=== PATIENT | female | born 1965 | race Caucasian/White ===

== ENCOUNTER 2016-12-01 09:36 | Observation (INO) ==
[2016-12-01] MEDS ORDERED: Ondansetron 4 MG/2 ML VIAL IVP ONE (10:22)
[2016-12-01] MEDS ORDERED: *HR* Morphine 2 MG/ML SYRINGE IVP ONE (10:22)
[2016-12-01 10:38] LABS: Basophils # 0.1 K/mcL (0.0-0.2); Eosinophils # 0.3 K/mcL (0.0-0.6); Eosinophils % 4.2 %; Hematocrit 34.4 % (35.3-44.9); Hemoglobin 10.7 g/dL (11.5-15.4); Immature Granulocytes % 0.3 % (0-4); Lymphocytes # 0.9 K/mcL (0.6-4.6); Lymphocytes % 14.8 %; Mean Corpuscular HGB Conc 31.1 g/dL (31.6-35.5); Mean Corpuscular Hemoglobin 23.8 pg (28.0-33.3); Mean Corpuscular Volume 76.4 fL (83.0-100.0); Mean Platelet Volume 11.1 fL (9.4-12.4); Monocytes # 0.5 K/mcL (0.0-1.3); Neutrophils # 4.4 K/mcL (1.6-8.9); Platelet Count 308 K/mcL (140-400); Red Cell Distribution Width 14.3 % (11.5-14.5); Segmented Neutrophils % 71.7 %
[2016-12-01 10:52] LABS: Alanine Aminotransferase 22 Units/L (0-55); Albumin 3.8 g/dL (3.5-5.0); Albumin/Globulin Ratio 1.1 (1.1-2.2); Alkaline Phosphatase 142 Units/L (38-126); Amylase 46 Units/L (25-125); Aspartate Amino Transferase 10 Units/L (5-34); BUN/Creatinine Ratio 19 (6-26); Bilirubin,Direct 0.2 mg/dL (0.0-0.5); Bilirubin,Indirect 0.2 mg/dL (0.0-1.2); Bilirubin,Total 0.4 mg/dL (0.2-1.2); Blood Urea Nitrogen 16 mg/dL (7-20); Calcium 9.4 mg/dL (8.6-10.8); Carbon Dioxide 23 mEq/L (19-29); Chloride 107 mEq/L (98-109); Globulin 3.6 g/dL (2.4-3.5); Glucose 111 mg/dL (70-99); Lipase 30 Units/L (8-78); Osmolality,Calculated 288 (280-300); Potassium 3.5 mEq/L (3.5-4.5); Sodium 138 mEq/L (136-145); Total Protein 7.4 g/dL (6.0-8.3); eGFR For African Americans > 60 (> 60); eGFR For Non-African Americans > 60 (> 60)
--- NOTE | 2016-12-01 10:58 | Emergency Department Note ---
Disposition Clinical Impression: Abdominal pain Qualifiers: Abdominal location: right upper quadrant Qualified Code(s): R10.11 - Right upper quadrant pain Disposition: Admitted As Inpatient Condition: Good Referrals: Glenna Craven CNP [Primary Care Provider] - Forms: Work/School Release, ED Satisfaction Letter Time of Disposition: 16:14 Abdominal Pain HPI - General Chief Complaint: ED Abdominal Pain Stated Complaint: RLQ Pain Time Seen by Provider: 12/01/16 09:57 Source: patient Mode of arrival: ambulatory Limitations: no limitations Nursing Notes Reviewed: Yes Vital Signs Reviewed: Yes - History of Present Illness HPI Narrative: 51-year-old female with no significant past medical history presents with progressive worsening right upper quadrant abdominal pain after laparoscopic cholecystectomy performed on November [address] Dean. The patient states that she continued to have right upper quadrant abdominal pain that is constant and sharp at times since her surgery. It now radiates into her left side of her abdomen as well as her back. She has been having some intermittent chills and nausea but no vomiting. She had her 2 week follow-up on 11/28/16. She was referred to GI and has an appointment on January 01. They are also waiting insurance approval for a CT scan. She has been taking 800 mg of ibuprofen every 4-6 hours. This has not been helping the pain. She denies any dysuria constipation or diarrhea. She has been taking a stool softener and she has no change in bowel movements. She denies any documented fevers, chest pain, shortness of breath, lightheadedness. She presents to the ED for evaluation of her worsening abdominal pain and cannot wait until her GI appointment in December. At time of evaluation, the patient rates the pain 10/10 and she is uncomfortable. Pain Scale: 10 - Related Data Home Medications Medication Instructions Recorded Confirmed Cholecalciferol (D-3) [Vitamin D] 2,000 unit PO DAILY 10/04/16 11/14/16 Docusate [Colace] 100 mg PO DAILY PRN 11/14/16 11/14/16 Ibuprofen [Motrin] 200 mg PO Q6HR PRN 11/14/16 11/14/16 LORazepam [Ativan] 0.5 mg PO DAILY PRN 11/14/16 11/14/16 Ondansetron HCl [Zofran] 4 mg PO Q8H PRN 11/14/16 11/14/16 Previous Rx's Medication Instructions Recorded Docusate [Colace] 100 mg PO BID #30 capsule 11/14/16 Oxycodone HCl/Acetaminophen 1 each PO Q4HR PRN #30 tablet 11/14/16 [Percocet 5-325 mg Tablet] Allergies Allergy/AdvReac Type Severity Reaction Status Date / Time No Known Allergies Allergy Verified 11/14/16 09:50 All systems ED: reviewed and negative except as stated. Constitutional: Reports: chills. Denies: fever Cardiovascular: Denies: chest pain, palpitations Respiratory: Denies: cough, dyspnea Gastrointestinal: Reports: abdominal pain, nausea. Denies: vomiting, diarrhea, constipation, hematemesis, hematochezia Genitourinary: Denies: urgency, dysuria, frequency Musculoskeletal: Reports: back pain (radiating from her abdominal pain) Neurological: Denies: headache, weakness Abdominal Pain PMH - Past Medical History Medical history: Reports: cancer Female Surgical History: Reports: breast surgery, , cholecystectomy Psychiatric history: Reports: anxiety - Social History Smoking status: Never smoker Alcohol use: Reports: none Drug use: Reports: none Physical Exam - General Limitations: no limitations General appearance: alert - Head Head exam: atraumatic, normocephalic, normal inspection - Eye Eye exam: Present: normal appearance. Absent: scleral icterus - ENT ENT exam: normal exam - Neck Neck exam: Present: normal inspection, full ROM, trachea midline - Chest Chest inspection: Present: normal inspection, symmetric chest wall rise - Respiratory Respiratory exam: Present: normal lung sounds bilaterally - Cardiovascular Cardiovascular exam: Present: regular rate, normal rhythm, normal heart sounds - Abdominal Exam Abdominal exam: Present: tenderness, normal bowel sounds, Watts's sign Abdominal tenderness: Present: RUQ, epigastrium - Neurological Exam Neurological exam: Present: alert, oriented X3 - Psychiatric Psychiatric exam: Present: normal affect, normal mood - Skin Skin exam: Present: warm, dry, intact, normal color Course Course Narrative: Patient with a lot of abdominal discomfort. We will obtain CT scan with IV contrast. Morphine and Zofran. We will reevaluate. - Reevaluation(s) Reevaluation #1: Patient reevaluated and still having pain. We will get 1 mg of Dilaudid. Time: 11:22 - Consultations Consultation #1: Discussed HIDA scan with Dr. Barnes. Tried to reassure patient that there is still concern. I did discuss with Dr Elliott and he has concern for maybe sphincter spasm. LFTs unremarkable. Dr. Barnes agreeable to admission for pain control and possible MRCP in the morning. Patient agreeable. Pain meds and fluids ordered. Awaiting bed placement. Time: 16:07 Vital Signs Temperature 98.6 F 12/01/16 09:42 Pulse Rate 120 12/01/16 09:42 Respiratory Rate 18 12/01/16 09:42 Blood Pressure 166/91 12/01/16 09:42 O2 Sat by Pulse Oximetry 95 12/01/16 09:42 Temperature 98.6 F 12/01/16 09:42 Pulse Rate 98 12/01/16 14:57 Respiratory Rate 18 12/01/16 14:57 Blood Pressure 149/89 12/01/16 14:57 O2 Sat by Pulse Oximetry 95 12/01/16 14:57 Oxygen Delivery Oxygen Delivery Room Air Abdominal Pain - Lab Data Result diagrams: 12/01/16 10:32 12/01/16 10:32 Lab Results 12/01/16 12/01/16 Range/Units 10:32 10:32 WBC 6.2 (4.3-11.1) K/mcL RBC 4.50 (3.82-4.97) M/mcL Hgb 10.7 L (11.5-15.4) g/dL Hct 34.4 L (35.3-44.9) % MCV 76.4 L (83.0-100.0) fL MCH 23.8 L (28.0-33.3) pg MCHC 31.1 L (31.6-35.5) g/dL RDW 14.3 (11.5-14.5) % Plt Count 308 (140-400) K/mcL MPV 11.1 (9.4-12.4) fL Immature Gran % 0.3 (0-4) % Seg Neutrophils % 71.7 % Lymphocytes % 14.8 % Monocytes % 8.0 % Eosinophils % 4.2 % Basophils % 1.0 % Neutrophils # 4.4 (1.6-8.9) K/mcL Lymphocytes # 0.9 (0.6-4.6) K/mcL Monocytes # 0.5 (0.0-1.3) K/mcL Eosinophils # 0.3 (0.0-0.6) K/mcL Basophils # 0.1 (0.0-0.2) K/mcL Sodium 138 (136-145) mEq/L Potassium 3.5 (3.5-4.5) mEq/L Chloride 107 (98-109) mEq/L Carbon Dioxide 23 (19-29) mEq/L BUN 16 (7-20) mg/dL Creatinine 0.85 (0.57-1.11) mg/dL Est GFR ( Amer) > 60 (> 60) Est GFR (Non-Af Amer) > 60 (> 60) BUN/Creatinine Ratio 19 (6-26) Glucose 111 H (70-99) mg/dL Calculated Osmolality 288 (280-300) Calcium 9.4 (8.6-10.8) mg/dL Total Bilirubin 0.4 (0.2-1.2) mg/dL Direct Bilirubin 0.2 (0.0-0.5) mg/dL Indirect Bilirubin 0.2 (0.0-1.2) mg/dL AST 10 (5-34) Units/L ALT 22 (0-55) Units/L Alkaline Phosphatase 142 H (38-126) Units/L Serum Total Protein 7.4 (6.0-8.3) g/dL Albumin 3.8 (3.5-5.0) g/dL Globulin 3.6 H (2.4-3.5) g/dL Albumin/Globulin Ratio 1.1 (1.1-2.2) Amylase 46 (25-125) Units/L Lipase 30 (8-78) Units/L Critical Care Time Critical Care Time: No
[2016-12-01] MEDS ORDERED: *HR* HYDROmorphone (PF) 1 MG/ML SYRINGE IVP ONE ×3 (11:20→15:52)
[2016-12-01] MEDS ORDERED: 0.9 % Sodium Chloride 1,000 ML IVC ONE (15:52)
[2016-12-01] MEDS ORDERED: Naloxone 0.4 MG/ML INJ IVP PRN (17:33)
--- NOTE | 2016-12-01 17:38 | General Surg History&Physical ---
<Siomara Gant - Last Filed: 12/01/16 17:58> Date of Encounter: 12/01/16 Time of Encounter: 17:38 Assessment and Plan (1) Post-operative pain Current Visit: Yes Status: Acute S/P laparoscopic cholecystectomy on 11/14/[address] Dean Action has been experiencing abdominal pain in the right upper quadrant that radiates to the back into the left upper quadrant for the last 2 weeks, is currently rated 10\10. She currently has a normal WBC, liver function tests except for a mildly elevated alk phos CT of the abdomen reveals a 1.5 cm collection in the gallbladder fossa that is consistent with small postoperative hematoma Hepatobiliary tests reveals that there does not appear to be flow into the common bile duct or small bowel, may represent spasm, hepatic dysfunction or duct obstruction. No evidence of jaundice or elevated AST\ALT. GI has been consulted by the emergency department. Plan for GI consult, patient may require MRCP or ERCP. Plan: -Keep NPO -Pain control with 1 mg IV Dilaudid Q1hr -Nausea control with Zofran -IV protonix -IVF at 100 mL per hour -IS as patient has been unable to take deep breaths secondary to pain. -GI to see him plan for MRCP or ERCP -AM labs The assessment and plan as outlined above was discussed with the patient and/or family members who expressed understanding and agreement. All questions were answered. (2) Abnormal CT of the abdomen Current Visit: Yes Status: Acute The assessment and plan as outlined above was discussed with the patient and/or family members who expressed understanding and agreement. All questions were answered. History of Present Illness Chief complaint: abdominal pain HPI: Ms. Mckeon is a 51 year old female with a history of breast cancer on the left S\P chemo/radiation partial mastectomy, who is s/p robotic cholecystectomy performed 11/14/2016 Dr. Dean who presented to the ER today complaining of progressively worsening right upper quadrant abdominal pain. The patient states that after discharge from the hospital she is continuing to have right upper quadrant pain that she describes as being constant and at times sharp. It will occasionally radiate to her left side and her back on the right side. She states that she used all of her medication that she was provided with her pain at discharge and then was told to take 800 mg of ibuprofen every 4-6 hours for pain. She states that this has not been helping her pain at all. She has been having some intermittent chills and nausea, denies any vomiting. She has also been unable to eat much of anything for the last 2 weeks. She does have normal bowel function and is passing gas. She states that she had her 2 week follow-up on . She states that she was referred to GI at this time and is awaiting further imaging test to be performed. The pain has become worse, and she felt she could not wait any longer to be evaluated by GI and thus presented to the ER today. Patient has a history of breast surgery, 2 sections, and cholecystectomy. She has been experiencing nausea with chills, pain and inability to take deep breaths, plantar numbness, weakness, feeling unbalanced, decreased appetite. She denies vomiting or fevers. Past Med Surg Social Fam HX - Past Medical History Medical history: cancer (Left breast s/p chemotherapy and radiation 2008) Psychiatric history: anxiety - Past Surgical History Surgical History: breast surgery, , cholecystectomy, other - Social History Smoking Status: Never smoker Smokeless Tobacco Status: No Alcohol use: none Drug use: none Medications and Allergies Cholecalciferol (D-3) [Vitamin D] 2,000 unit PO DAILY 10/04/16 [History] Ibuprofen [Motrin] 200 mg PO Q6HR PRN 11/14/16 [History] Docusate [Colace] 100 mg PO BID PRN 12/01/16 [History] Allergies No Known Allergies Allergy (Verified 11/14/16 09:50) Review of Systems All systems PM: A 10-system review of systems was performed and is negative for pertinent findings except as documented above in the HPI. - Constitutional anorexia, chills, fatigue, headache(s), weakness, no fever(s) - EENT Nose, mouth and throat: dizziness, headache(s), no dysphagia, no neck pain, no nose pain - Cardiovascular no chest pain, no palpitations, no syncope - Gastrointestinal abdominal pain, bloating, heartburn, nausea, no change in bowel habits, no change in stool character, no coffee ground emesis, no constipation, no diarrhea , no hematemesis, no hematochezia, no loose stools, no melena, no vomiting - Genitourinary Genitourinary: no dysuria - Musculoskeletal numbness (Anterior plantar aspect of bilateral feet) - Integumentary no erythema, no rash - Neurological dizziness, headache(s), numbness - Endocrine fatigue, no excessive sweating - Hematologic/Lymphatic no easy bleeding, no easy bruising - Allergic/Immunologic no wheezing General Surgery Exam Initial Vital Signs Temp Pulse Resp BP Pulse Ox 98.6 F 120 18 166/91 95 12/01/16 09:42 12/01/16 09:42 12/01/16 09:42 12/01/16 09:42 12/01/16 09:42 - General physical appearance well developed, well nourished, moderate distress, severe pain. negative: jaundice - Eyes PERRL, normal ocular movement. negative: icteric - ENT normal pinna, normal nares, normal mucosa, atraumatic, normocephalic, CN 2-12 grossly intact - Neck no masses, trachea midline, no lymphadectomy - Respiratory normal expansion, normal respiratory effort, clear to percussion, clear to auscultation - Cardiovascular Cardiovascular exam: Present: RRR, no murmurs/rubs/gallops - Abdomen Abdomen general surgery: Present: bowel sounds present, soft, distended, tender , surgical scars Abdominal Tenderness: Present: RUQ, diffusely - Incision Incision: Present: clean and dry - Integumentary Integumentary general surgery: Present: no abnormal pigmentation, other (Cool). Absent: diaphoresis - Neurologic Present: CN 2-12 grossly intact, normal coordination, other (Decreased sensation to the anterior plantar aspect of bilateral feet) - Musculoskeletal Present: normal posture - Psychiatric Psychiatric general surgery: Present: appropriate, oriented to person, oriented to place, oriented to time, speech is normal, memory intact Results - Labs 12/01/16 10:32 12/01/16 10:32 Abnormal lab results Hgb 10.7 g/dL (11.5-15.4) L 12/01/16 10:32 Hct 34.4 % (35.3-44.9) L 12/01/16 10:32 MCV 76.4 fL (83.0-100.0) L 12/01/16 10:32 MCH 23.8 pg (28.0-33.3) L 12/01/16 10:32 MCHC 31.1 g/dL (31.6-35.5) L 12/01/16 10:32 Glucose 111 mg/dL (70-99) H 12/01/16 10:32 Alkaline Phosphatase 142 Units/L (38-126) H 12/01/16 10:32 Globulin 3.6 g/dL (2.4-3.5) H 12/01/16 10:32 All other labs normal. - Imaging CT scan - abdomen: report reviewed, image reviewed Additional studies: Abdomen/Pelvis CT 12/01/16 10:22 IMPRESSION: Small 1.7 cm fluid collection in the cholecystectomy bed. This may be due to a seroma, abscess or biloma. D/ / Juan Salomon MD / Juan Salomon MD Interpreting Provider: Juan Salomon MD Bile Acid Absorption NM 12/01/16 11:54 IMPRESSION: No evidence of active bile leak. Poor excretion of radiopharmaceutical is seen through 2 hours, for which hepatocellular dysfunction is a consideration. Correlate with LFT. D/ / Deep Frye MD / Deep Frye MD Interpreting Provider: Deep Frye MD <Minesh Barnes - Last Filed: 12/02/16 16:55> Date of Encounter: 12/02/16 History of Present Illness HPI: Ms. Mckeon is a 51 year old female Review of Systems All systems PM: A 10-system review of systems was performed and is negative for pertinent findings except as documented above in the HPI. General Surgery Exam Initial Vital Signs Temp Pulse Resp BP Pulse Ox 98.6 F 120 18 166/91 95 12/01/16 09:42 12/01/16 09:42 12/01/16 09:42 12/01/16 09:42 12/01/16 09:42 Results - Labs 12/02/16 03:22 12/02/16 03:22 Abnormal lab results Hgb 10.7 g/dL (11.5-15.4) L 12/01/16 10:32 Hct 34.4 % (35.3-44.9) L 12/01/16 10:32 MCV 76.4 fL (83.0-100.0) L 12/01/16 10:32 MCH 23.8 pg (28.0-33.3) L 12/01/16 10:32 MCHC 31.1 g/dL (31.6-35.5) L 12/01/16 10:32 Glucose 111 mg/dL (70-99) H 12/01/16 10:32 Alkaline Phosphatase 142 Units/L (38-126) H 12/01/16 10:32 Globulin 3.6 g/dL (2.4-3.5) H 12/01/16 10:32 All other labs normal. - Attending Attestation I examined this patient and my medical decision-making was reviewed with the GIS SPECIALIST/PA/Advanced Practice Nurse/Resident Physician. I agree with the documented findings, disposition and treatment plan as described except to the extent set forth below. The patient is seen and evaluated. Previous operative reports and progress notes are reviewed. The CAT scan and hepatobiliary test is reviewed. All laboratory testing liver function tests are reviewed. The patient has had very similar pain preoperatively and postoperatively to her laparoscopic cholecystectomy. She rates her pain at 10 out of 10 today. She states her pain is right upper quadrant epigastric and radiating through to the back. She had a full workup in the emergency room including a normal white blood cell count and liver function tests aside from a mildly elevated alkaline phosphatase. I personally reviewed the CAT scan she has 1.5 cm collection in the gallbladder fossa that is consistent with a small postoperative hematoma that is not clinically significant. There are no other fluid collections or diffuse ascites in the abdomen I reviewed the hepatobiliary test and there does not appear to be flow into the common bile duct or small bowel. This may represent spasm, hepatic dysfunction or duct obstruction. She has no evidence of jaundice or elevation of transaminases. Since she is 2 weeks out from surgery with normal liver function tests I do not think that this represents common bile duct injury or bile duct leak. She may have distal common bile duct obstruction that is intermittent or spasm of the sphincter of Otti. We will make a consultation for gastroenterology. She may require MRCP or ERCP. Minesh Barnes MD FACS
[2016-12-01] MEDS: 0.9 % Sodium Chloride 1,000 ML IVC SCH (17:59)
[2016-12-01] MEDS: Ondansetron 4 MG/2 ML VIAL IVP PRN (18:00)
[2016-12-01] MEDS: *HR* HYDROmorphone (PF) 1 MG/ML SYRINGE IVP PRN ×3 (18:00→23:48)
[2016-12-01] MEDS: Pantoprazole 40 MG VIAL IVP SCH (18:00)
[2016-12-02 02:19] LABS: Bilirubin,Urine Negative (Negative); Blood,Urine Negative (Negative); Color,Urine Yellow (Yellow); Glucose,Urine (UA) Normal (Normal); Ketones,Urine Trace mg/dL (Negative); Leukocyte Esterase,Urine Negative (Negative); Nitrite,Urine Negative (Negative); PH,Urine 6.5 pH Units (5.0-8.0); Protein,Urine Negative (Neg-Trace); Specific Gravity,Urine 1.026 (1.010-1.025)
[2016-12-02 02:23] LABS: Clarity,Urine Hazy (Clear)
[2016-12-02] MEDS: 0.9 % Sodium Chloride 1,000 ML IVC SCH ×2 (03:29→15:42)
[2016-12-02 03:53] LABS: Basophils # 0.1 K/mcL (0.0-0.2); Eosinophils # 0.2 K/mcL (0.0-0.6); Eosinophils % 3.9 %; Hematocrit 30.5 % (35.3-44.9); Hemoglobin 9.4 g/dL (11.5-15.4); Immature Granulocytes % 0.2 % (0-4); Lymphocytes # 1.1 K/mcL (0.6-4.6); Lymphocytes % 16.9 %; Mean Corpuscular HGB Conc 30.8 g/dL (31.6-35.5); Mean Corpuscular Hemoglobin 23.9 pg (28.0-33.3); Mean Corpuscular Volume 77.4 fL (83.0-100.0); Mean Platelet Volume 11.6 fL (9.4-12.4); Monocytes # 0.6 K/mcL (0.0-1.3); Monocytes % 10.3 %; Neutrophils # 4.2 K/mcL (1.6-8.9); Platelet Count 264 K/mcL (140-400); Red Blood Count 3.94 M/mcL (3.82-4.97); Red Cell Distribution Width 14.3 % (11.5-14.5); Segmented Neutrophils % 67.7 %
[2016-12-02 04:00] LABS: Alanine Aminotransferase 103 Units/L (0-55); Albumin 3.3 g/dL (3.5-5.0); Albumin/Globulin Ratio 1.1 (1.1-2.2); Alkaline Phosphatase 176 Units/L (38-126); Aspartate Amino Transferase 87 Units/L (5-34); BUN/Creatinine Ratio 16 (6-26); Bilirubin,Direct 0.3 mg/dL (0.0-0.5); Bilirubin,Indirect 0.2 mg/dL (0.0-1.2); Bilirubin,Total 0.5 mg/dL (0.2-1.2); Blood Urea Nitrogen 12 mg/dL (7-20); Calcium 8.6 mg/dL (8.6-10.8); Carbon Dioxide 22 mEq/L (19-29); Chloride 108 mEq/L (98-109); Globulin 3.1 g/dL (2.4-3.5); Glucose 100 mg/dL (70-99); Osmolality,Calculated 284 (280-300); Potassium 3.7 mEq/L (3.5-4.5); Sodium 137 mEq/L (136-145); Total Protein 6.4 g/dL (6.0-8.3); eGFR For African Americans > 60 (> 60); eGFR For Non-African Americans > 60 (> 60)
[2016-12-02] MEDS: *HR* HYDROmorphone (PF) 1 MG/ML SYRINGE IVP PRN ×6 (05:52→19:47)
[2016-12-02] MEDS: Ondansetron 4 MG/2 ML VIAL IVP PRN (05:55)
--- NOTE | 2016-12-02 06:49 | General Surgery Progress Note ---
Date of Encounter: 12/02/16 Time of Encounter: 12:15 - Assessment and Plan (1) Post-operative pain Current Visit: Yes Status: Acute S/P laparoscopic cholecystectomy on 11/14/[address] Dean WBC 6.2, hemoglobin 9.4, hematocrit 30.5 AST 87, ALT 103, alk phos 176 which are all increased from yesterday VSS, abdomen soft, RUQ Plan: -Keep NPO -Pain control with Dilaudid 1 mg Q1hr -Patient will be evaluated by GI today, plan for ERCP -Continue fluids saw patient in endoscopy, ok for diet after ercp, will see if pain is better after sphincterotomy, prn pain control, ivf repeat labs in am (2) Abnormal CT of the abdomen Current Visit: Yes Status: Acute likely post op small hematoma, Hb stable Subjective Patient reports: still having pain Narrative: The patient was seen and examined. She states that Dilaudid is controlling her pain the most part. She does complain of a headache, dry mouth. Objective Vital Signs - Last 8 Hours Temp Pulse Resp BP Pulse Ox 12/02/16 03:33 97.6 F 81 16 173/80 94 12/01/16 23:16 98.5 F 80 14 130/85 94 Intake and Output 12/01/16 12/01/16 12/02/16 15:59 23:59 07:59 Intake Total 1000 / 1000 Output Total 400 / 400 Balance -400 / -400 1000 / 1000 Intake: IV Fluids 1000 / 1000 0.9 % Sodium Chloride 1, 1000 / 1000 000 ML @ 100 mls/hr IVC . Q10H [facility] Rx#:[id number] Output: Urine 400 / 400 Other: Weight 87.543 kg Blood Glucose* 110 104 - General physical appearance well developed, well nourished, moderate distress, moderate pain - Eyes PERRL, normal ocular movement - ENT dry mucosa, atraumatic, normocephalic - Neck Neck exam: trachea midline - Respiratory normal expansion, normal respiratory effort, clear to auscultation - Cardiovascular Cardiovascular exam: Present: RRR, no murmurs/rubs/gallops. Absent: JVD - Abdomen Abdomen: Present: bowel sounds present (hypoactive), soft, tender Abdominal Tenderness: RUQ - Incision Incision: Present: clean and dry - Integumentary no rash, no growths, no abnormal pigmentation - Neurologic normal coordination, normal sensation - Musculoskeletal normal gait, normal posture - Psychiatric oriented to time, oriented to person, oriented to place, speech is normal, memory intact - Labs 12/02/16 03:22 12/02/16 03:22 Short CBC 12/02/16 Range/Units 03:22 WBC 6.2 (4.3-11.1) K/mcL Hgb 9.4 L (11.5-15.4) g/dL Hct 30.5 L (35.3-44.9) % Plt Count 264 (140-400) K/mcL Neutrophils # 4.2 (1.6-8.9) K/mcL BMP 12/02/16 Range/Units 03:22 Sodium 137 (136-145) mEq/L Potassium 3.7 (3.5-4.5) mEq/L Chloride 108 (98-109) mEq/L Carbon Dioxide 22 (19-29) mEq/L BUN 12 (7-20) mg/dL Creatinine 0.73 (0.57-1.11) mg/dL Glucose 100 H (70-99) mg/dL Calcium 8.6 (8.6-10.8) mg/dL Liver Function 12/02/16 Range/Units 03:22 Total Bilirubin 0.5 (0.2-1.2) mg/dL Direct Bilirubin 0.3 (0.0-0.5) mg/dL AST 87 H (5-34) Units/L ALT 103 H (0-55) Units/L Alkaline Phosphatase 176 H (38-126) Units/L Albumin 3.3 L (3.5-5.0) g/dL Urine 12/02/16 Range/Units 02:10 Urine Color Yellow (Yellow) Urine Clarity Hazy A (Clear) Urine pH 6.5 (5.0-8.0) pH Units Ur Specific Perkins 1.026 H (1.010-1.025) Urine Protein Negative (Neg-Trace) mg/dL Urine Glucose (UA) Normal (Normal) mg/dL - Imaging CT scan - abdomen: report reviewed, image reviewed Additional Studies: Abdomen/Pelvis CT 12/01/16 10:22 IMPRESSION: Small 1.7 cm fluid collection in the cholecystectomy bed. This may be due to a seroma, abscess or biloma. D/ / Juan Salomon MD / Juan Salomon MD Interpreting Provider: Juan Salomon MD Bile Acid Absorption NM 12/01/16 11:54 IMPRESSION: No evidence of active bile leak. Poor excretion of radiopharmaceutical is seen through 2 hours, for which hepatocellular dysfunction is a consideration. Correlate with LFT. D/ / Deep Frye MD / Deep Frye MD Interpreting Provider: Deep Frye MD Consult Discharge Plan - Plan Referrals: Glenna Craven CNP [Primary Care Provider] - 12/08/16 10:15 am - Attending Attestation I examined this patient and my medical decision-making was reviewed with the ENGINE REPAIRER/PA/Advanced Practice Nurse/Resident Physician. I agree with the documented findings, disposition and treatment plan as described except to the extent set forth below.
[2016-12-02] MEDS: Pantoprazole 40 MG VIAL IVP SCH (07:53)
--- NOTE | 2016-12-02 11:23 | Gastroenterology Consult Note ---
<Ramez Bejarano - Last Filed: 12/02/16 11:20> Date of Encounter: 12/02/16 Time of Encounter: 10:00 - Assessment and plan (1) Abnormal finding on imaging Status: Acute Assessment and plan: Concern of no flow into small bowel or CBD during HIDA scan. LFTs worsening. Plan for ERCP today. Keep NPO. (2) Abdominal pain Status: Acute Assessment and plan: Plan for ERCP today as LFTs elevated and HIDA with no flow into CBD or small bowel. Qualifiers: Abdominal location: right upper quadrant Qualified Code(s): R10.11 - Right upper quadrant pain (3) Elevated LFTs Status: Acute Assessment and plan: Plan for ERCP to evaluate CBD. Keep NPO. - Time Spent With Patient Total time spent is greater than 50% in coordination of care (as documented) at patient's floor/unit and/or counseling patient: GI History of Present Illness - Data of Consult Patient: new to practice Consult date: 12/02/16 Requesting Physician: Minesh Barnes MD - Consult Narrative Reason for consult: Abnormal HIDA History of present illness: Ms. Mckeon is a 51 year old female with PMHx of left breast cancer s/p chemo/ radiation in 2008, who is s/p cholecystectomy on 11/14/[address] Dean who presented to the ED with worsening RUQ pain. She states that she used all of her medication that she was provided with her pain at discharge and then was told to take 800 mg of ibuprofen every 4-6 hours for pain, which has not been controlling her pain. She has been having some intermittent chills and nausea, denies any vomiting. We have been consulted due to abnormal HIDA scan. Procedures: Colonoscopy 10/04/2016 Dr. Dean: Tortuous colon. NSAIDs: Ibuprofen Anticoagulation: None Past Med Surg Social Fam HX - Past Medical History Medical history: cancer (Left breast s/p chemotherapy and radiation 2008) Psychiatric history: anxiety - Past Surgical History Surgical History: breast surgery, , cholecystectomy, other - Social History Smoking Status: Never smoker Smokeless Tobacco Status: No Alcohol use: none Drug use: none - Gastrointestinal Gastrointestinal: Present: as per HPI - Constitutional Constitutional: as per HPI - EENT Eyes: as per HPI Ears: Present: as per HPI Nose, mouth and throat: Present: as per HPI - Cardiovascular Cardiovascular ROS: Present: as per HPI - Respiratory Respiratory IM: Present: as per HPI - Genitourinary Genitourinary: Absent: change in color, Urinary frequency - Neurological ROS Neurological GI: Present: as per HPI - Hematologic/Lymphatic Hematologic/Lymphatic pediatric: Present: as per HPI - Musculoskeletal Musculoskeletal ROS GI: Present: as per HPI - Integumentary Integumentary GI: Present: as per HPI - Psychiatric ROS Psychiatric GI: Present: as per HPI - Endocrine Endocrine IM: Present: as per HPI - Constitutional Vitals: Temp Pulse Resp BP Pulse Ox 98.6 F 88 12 150/85 92 12/02/16 07:43 12/02/16 07:43 12/02/16 07:43 12/02/16 07:43 12/02/16 07:58 General appearance: Present: cooperative, A&O X 3, no acute distress, answers questions appropriately - Head Head exam: Present: atraumatic, normocephalic - Eye Eye exam: Present: normal appearance, sclera anicteric - ENT ENT exam: Present: mucous membranes dry - Neck Neck exam general surgery: Present: normal inspection, trachea midline - Respiratory Respiratory exam: Present: CTAB. Absent: rales, rhonchi - Cardiovascular Cardiovascular exam: Present: RRR, +S1, +S2 - GI/Abdominal GI/Abdominal exam: Present: soft, tenderness, no peritoneal signs. Absent: distended, firm, guarding - Rectal Rectal exam: Present: deferred - Extremities Exam Extremities exam: Present: warm - Neurological Exam Neurological exam: Present: no focal deficits - Psychiatric Psychiatric exam: Present: normal affect, normal mood - Skin Skin exam: Present: dry, intact, normal color, warm Results - Labs CBC & Chem 7: 12/02/16 03:22 12/02/16 03:22 Labs: Last Result Calcium 8.6 mg/dL (8.6-10.8) 12/02/16 03:22 Entire Visit Hgb 9.4 g/dL (11.5-15.4) L 12/02/16 03:22 Hct 30.5 % (35.3-44.9) L 12/02/16 03:22 Total Bilirubin 0.5 mg/dL (0.2-1.2) 12/02/16 03:22 AST 87 Units/L (5-34) H 12/02/16 03:22 ALT 103 Units/L (0-55) H 12/02/16 03:22 Amylase 46 Units/L (25-125) 12/01/16 10:32 Lipase 30 Units/L (8-78) 12/01/16 10:32 Consult Discharge Plan - Plan Additional Instructions: Follow-up in one week with surgery team. Our office will call you next week to set up an appointment. If you do not hear from our office by Monday, please call [facility] at [phone]. 1. May shower today. 2. Wash incisions with soap and water and pat dry daily. 3. No lifting restrictions. 4. May drive when off narcotics for over 24 hours and able to react safely in the car. 5. May climb stairs. Referrals: Glenna Craven CNP [Primary Care Provider] - 12/08/16 10:15 am Funmilayo Elliott MD [Partnered Physician] - 01/02/17 3:30 pm Prescriptions: RX: Ibuprofen [Motrin] 200 mg PO Q6HR PRN #30 tablet PRN Reason: Mild Pain RX: OxyCODONE/APAP 5/325 [Percocet 5/325 MG] 1 each PO Q6HR PRN #14 tablet PRN Reason: Moderate Pain RX: Docusate [Colace] 100 mg PO BID PRN #60 capsule PRN Reason: Constipation RX: Scopolamine Patch [Transderm-Scop] 1.5 mg TD Q72H #1 patch.td72 RX: Simethicone [Gas-X] 80 mg PO TID PRN #60 tab.chew PRN Reason: Dyspepsia <Funmilayo Elliott - Last Filed: 12/05/16 17:55> Date of Encounter: 12/02/16 Time of Encounter: 11:00 - Time Spent With Patient Total time spent is greater than 50% in coordination of care (as documented) at patient's floor/unit and/or counseling patient: GI History of Present Illness - Data of Consult Requesting Physician: Minesh Barnes MD - Consult Narrative History of present illness: Ms. Mckeon is a 51 year old female - Constitutional Vitals: Temp Pulse Resp BP Pulse Ox 98.9 F 71 16 135/84 96 12/03/16 15:21 12/03/16 15:21 12/03/16 15:21 12/03/16 15:21 12/03/16 15:21 Results - Labs CBC & Chem 7: 12/02/16 03:22 12/02/16 03:22 Labs: Last Result Calcium 8.6 mg/dL (8.6-10.8) 12/02/16 03:22 Entire Visit Hgb 9.4 g/dL (11.5-15.4) L 12/02/16 03:22 Hct 30.5 % (35.3-44.9) L 12/02/16 03:22 Total Bilirubin 0.5 mg/dL (0.2-1.2) 12/03/16 05:36 AST 47 Units/L (5-34) H 12/03/16 05:36 ALT 85 Units/L (0-55) H 12/03/16 05:36 Amylase 46 Units/L (25-125) 12/01/16 10:32 Lipase 31 Units/L (8-78) 12/03/16 05:36 - Attending Attestation I examined this patient and my medical decision-making was reviewed with the MACHINE MOVER/PA/Advanced Practice Nurse/Resident Physician. I agree with the documented findings, disposition and treatment plan as described except to the extent set forth below.
[2016-12-02] MEDS ORDERED: Scopolamine Patch 1.5 MG PATCH.TD72 ONE (11:48)
--- NOTE | 2016-12-02 11:53 | Anesthesia Evaluation PreOp ---
Date of Encounter: 12/02/16 Time of Encounter: 11:51 - Past History Planned Operation: ERCP Cardiac History: Denies any Significant Hx Pulmonary History: Denies Any Significant HX MEAT SPECIALIST History: Other (anxiety) Other Medical History: Other (L breast ca hx) Anesthesia History: Past Anesthesia (cholecystectomy, breast surgery), Problems (nausea - scop patch applied) Alcohol Use: none Drug use: none Medications and Allergies Cholecalciferol (D-3) [Vitamin D] 2,000 unit PO DAILY 10/04/16 [History] Ibuprofen [Motrin] 200 mg PO Q6HR PRN 11/14/16 [History] Docusate [Colace] 100 mg PO BID PRN 12/01/16 [History] Allergies No Known Allergies Allergy (Verified 11/14/16 09:50) - Meds/Allergy Pre-op Review Medications Reviewed: Yes Allergies Reviewed: Yes Beta Blockers on Current Med List: No Anesthesia Results - Labs 12/02/16 03:22 12/02/16 03:22 Anesthesia Exam Last Vital Signs Temp 98.0 F 12/02/16 11:30 Pulse 84 12/02/16 11:30 Resp 12 12/02/16 11:30 BP 154/90 12/02/16 11:30 Pulse Ox 97 12/02/16 11:30 Weight: 88 kg NPO (# of Hours): >> 8 hrs - HEENT Pupil (Motor): Pupils equal, EOMI Mallampati: I Teeth: Normal Oral Opening: Greater than 3 - MEAT SPECIALIST LOC: Oriented MEAT SPECIALIST Motor: Normal RUE, Normal LUE, Normal RLE, Normal LLE, Normal Face - Cardiac Rhythm: Regular Murmur: None - Pulmonary Breath Sounds: bilateral Clear Respiratory Effort: Symmetrical Anesthesia Assess/Plan ASA Score: 2 Modified Alfredo Scale for Level of Consciousness: Cooperative, oriented, and tranquil Anesthetic Plan: General Monitoring Plan: Standard Monitors Recovery Plan: PACU
--- NOTE | 2016-12-02 13:20 | Anesthesia Evaluation Post Op ---
Date of Encounter: 12/02/16 Time of Encounter: 13:19 - Vital Signs Vital Signs: Last Vital Signs Temp 98.0 F 12/02/16 11:30 Pulse 84 12/02/16 11:30 Resp 12 12/02/16 11:30 BP 154/90 12/02/16 11:30 Pulse Ox 97 12/02/16 11:30 - Lungs Lungs: Clear Ascult./Percussion - Airway Airway: Non-obstructed - Cardiovascular Regular Rate - Mental Status Mental Status: Alert & Oriented, Answers Appropriately - Pain Pain Scale: 3 - Nausea Vomiting Nausea Vomiting: Not Present - Hydration Hydration: NPO - Discharge PostOp Status: Transfer Patient to floor
[2016-12-02] MEDS ORDERED: Indomethacin 50 MG SUPP.RECT RC ONE (13:30)
[2016-12-02] MEDS: *HR* Labetalol 20 MG/4 ML SYRINGE IVP PRN ×3 (14:08→14:29)
[2016-12-02] MEDS ORDERED: *HR* OxyCODONE/APAP 5/325 TABLET PO PRN (17:00)
[2016-12-03] MEDS: *HR* HYDROmorphone (PF) 1 MG/ML SYRINGE IVP PRN ×3 (01:02→12:41)
[2016-12-03] MEDS: 0.9 % Sodium Chloride 1,000 ML IVC SCH ×2 (03:14→10:23)
[2016-12-03 06:32] LABS: Albumin 3.2 g/dL (3.5-5.0); Bilirubin,Direct 0.2 mg/dL (0.0-0.5); Bilirubin,Indirect 0.3 mg/dL (0.0-1.2); Bilirubin,Total 0.5 mg/dL (0.2-1.2); Globulin 3.2 g/dL (2.4-3.5); Total Protein 6.4 g/dL (6.0-8.3)
[2016-12-03] MEDS ORDERED: Simethicone 80 MG TAB.CHEW PO PRN (10:15)
--- NOTE | 2016-12-03 10:17 | Discharge Summary ---
<Kyler De Jesus M - Last Filed: 12/03/16 14:13> Date of Encounter: 12/03/16 - Discharge Medications Prescriptions: Ibuprofen [Motrin] 200 mg PO Q6HR PRN #30 tablet PRN Reason: Mild Pain OxyCODONE/APAP 5/325 [Percocet 5/325 MG] 1 each PO Q6HR PRN #14 tablet PRN Reason: Moderate Pain Docusate [Colace] 100 mg PO BID PRN #60 capsule PRN Reason: Constipation Scopolamine Patch [Transderm-Scop] 1.5 mg TD Q72H #1 patch.td72 Simethicone [Gas-X] 80 mg PO TID PRN #60 tab.chew PRN Reason: Dyspepsia Home Medications: Cholecalciferol (D-3) [Vitamin D] 2,000 unit PO DAILY 10/04/16 [History] Docusate [Colace] 100 mg PO BID PRN #60 capsule 12/03/16 [Rx] Ibuprofen [Motrin] 200 mg PO Q6HR PRN #30 tablet 12/03/16 [Rx] OxyCODONE/APAP 5/325 [Percocet 5/325 MG] 1 each PO Q6HR PRN #14 tablet 12/03/16 [Rx] Scopolamine Patch [Transderm-Scop] 1.5 mg TD Q72H #1 patch.td72 12/03/16 [Rx] Simethicone [Gas-X] 80 mg PO TID PRN #60 tab.chew 12/03/16 [Rx] Allergies/Adverse Reactions: Allergies No Known Allergies Allergy (Verified 11/14/16 09:50) General Surgery Exam Initial Vital Signs Temp Pulse Resp BP Pulse Ox 98.6 F 120 18 166/91 95 12/01/16 09:42 12/01/16 09:42 12/01/16 09:42 12/01/16 09:42 12/01/16 09:42 Date of admission: 12/01/16 16:21 Primary care physician: Glenna Craven CNP - Patient Status Disposition: Home, Self-Care Condition: Good - Discharge Instructions Follow Up With: Glenna Craven CNP [Primary Care Provider] - 12/08/16 10:15 am Funmilayo Elliott MD [Partnered Physician] - 01/02/17 3:30 pm Additional Instructions: Follow-up in one week with surgery team. Our office will call you next week to set up an appointment. If you do not hear from our office by Monday, please call [facility] at [phone]. 1. May shower today. 2. Wash incisions with soap and water and pat dry daily. 3. No lifting restrictions. 4. May drive when off narcotics for over 24 hours and able to react safely in the car. 5. May climb stairs. - Hospital Course Hospital course: Ms. Mckeon is a 51 year old female - Time Spent with Patient Total time spent providing and/or coordinating discharge services: Labs on day of discharge: Labs from last 24 hours 12/03/16 05:36 Total Bilirubin 0.5 Direct Bilirubin 0.2 Indirect Bilirubin 0.3 AST 47 H ALT 85 H Alkaline Phosphatase 173 H Serum Total Protein 6.4 Albumin 3.2 L Globulin 3.2 Albumin/Globulin Ratio 1.0 L Lipase 31 - Impressions ITS Impressions Cath/Invasive Procedure 12/02/16 12:55 IMPRESSION: Fluoroscopy provided for ERCP procedure. See the intraoperative note for complete details. D/ / Iftikhar Hernandes MD / Iftikhar Hernandes MD Interpreting Provider: Iftkihar Hernandes MD - Attending Attestation I examined this patient and my medical decision-making was reviewed with the INDUSTRY ANALYST/PA/Advanced Practice Nurse/Resident Physician. I agree with the documented findings, disposition and treatment plan as described except to the extent set forth below. I reviewed the above assessment and evaluation with the automotive internet sales manager present. Although patient does have right upper quadrant pain following the ERCP she states her pain is somewhat improved. Will add simethicone to her medication list recommended slow advancement of her diet. Will ensure follow-up within 1- 2 weeks and ensure that she has a follow-up with gastroenterology if necessary. <Arpita Hutchins - Last Filed: 12/03/16 15:21> Date of Encounter: 12/03/16 Time of Encounter: 08:00 - Discharge Diagnosis (1) Abdominal pain Priority: Primary Status: Acute Comments: Abdominal pain of suspected biliary origin with elevated liver enzymes. ERCP was performed, sphincterotomy performed with well draining bile duct. Qualifiers: Abdominal location: right upper quadrant Qualified Code(s): R10.11 - Right upper quadrant pain (2) Post-operative pain Priority: Primary Status: Acute Comments: As described above abdominal pain. General Surgery Exam Initial Vital Signs Temp Pulse Resp BP Pulse Ox 98.6 F 120 18 166/91 95 12/01/16 09:42 12/01/16 09:42 12/01/16 09:42 12/01/16 09:42 12/01/16 09:42 - General physical appearance well developed, well nourished, no distress, moderate distress, moderate pain ( Postoperative bloating and diffuse abdominal pain described by the patient as crampy) - Eyes PERRL, normal ocular movement. negative: pale, icteric - ENT normal pinna, normal nares, normal mucosa, atraumatic, normocephalic, CN 2-12 grossly intact - Neck trachea midline, no venous distension - Respiratory normal expansion, normal respiratory effort, clear to auscultation - Cardiovascular Cardiovascular exam: Present: RRR, no murmurs/rubs/gallops. Absent: JVD - Abdomen Abdomen general surgery: Present: bowel sounds present, soft, tender ( Postprocedure mild tenderness to palpation mainly over right upper quadrant). Absent: masses, guarding, rebound, rigid - Incision Incision: Present: intact (Well-healed after laparoscopic cholecystectomy) - Integumentary Integumentary general surgery: Present: warm and dry, no abnormal pigmentation. Absent: rash - Neurologic Present: CN 2-12 grossly intact, normal coordination, normal sensation - Musculoskeletal Present: normal gait, normal posture - Psychiatric Psychiatric general surgery: Present: A&Ox3, appropriate, oriented to person, oriented to place, oriented to time, speech is normal Date of admission: 12/01/16 16:21 Primary care physician: Glenna Craven CNP Discharging clinician: Kyler De Jesus Anticipated date of discharge: 12/03/16 - Patient Status Functional capacity at discharge: independent ambulation Overall status at discharge: patient is progressing back to baseline - Diet and Activity Activity: increase activity as tolerated Diet: advance to your usual diet - Hospital Course Hospital course: Ms. Mckeon is a 51 year old female who presented to the emergency department on 12/01/16 with progressively worsening right upper quadrant abdominal pain with radiation to her status post laparoscopic cholecystectomy by Dr. Dean on 11/14/16. Patient presented to her 2 week follow-up on 11/28/16 status post laparoscopic cholecystectomy and was referred to GI for further evaluation and has an appointment on 01/01/2017. Patient was admitted to the hospital on for further evaluation of postoperative pain. On admission, she had a normal blood cell count, liver function tests except for mildly elevated alkaline phosphatase. CT of the abdomen revealed 1.5 cm collection of fluid in the gallbladder fossa consistent with postoperative hematoma. Hepatobiliary testing revealed there did not appear to be flow in the common bile duct or small bowel suggestive of spasm or hepatic duct obstruction. GI was consulted on 12/02/16 for ERCP. Patient underwent ERCP due to abdominal pain of suspected biliary origin and elevated liver enzymes. A sphincterotomy was performed with no evidence of post sphincterotomy bleeding. No stone was found. No bile leak was seen. Patient was draining very well after sphincterotomy and there was no indication for stent at that time. Patient tolerated procedure well. Post ERCP patient had an elevation of her liver enzymes; AST/ALT and alkaline phosphatase that were only mildly decreased today. Suspect some degree of biliary dysfunction and residual abdominal pain that may need to further investigated by GI outpatient. Patient was encouraged to keep her upcoming appointment. Postoperative abdominal discomfort discussed with patient she expressed her understanding and had her questions answered. Today patient reports that she has abdominal loading and discomfort however, she is passing flatus and urinating without difficulty. Her diet was advanced to normal regular diet as she was tolerating her liquids appropriately. Suspect significant amount of gas and have prescribed simethicone to alleviate this. Patient is instructed to follow-up in one week with surgery. - Time Spent with Patient Total time spent providing and/or coordinating discharge services: Labs on day of discharge: Labs from last 24 hours 12/03/16 12/02/16 05:36 11:19 POC Glucose 113 H Total Bilirubin 0.5 Direct Bilirubin 0.2 Indirect Bilirubin 0.3 AST 47 H ALT 85 H Alkaline Phosphatase 173 H Serum Total Protein 6.4 Albumin 3.2 L Globulin 3.2 Albumin/Globulin Ratio 1.0 L Lipase 31 - Impressions ITS Impressions Cath/Invasive Procedure 12/02/16 12:55 IMPRESSION: Fluoroscopy provided for ERCP procedure. See the intraoperative note for complete details. D/ / Iftikhar Hernandes MD / Iftikhar Hernandes MD Interpreting Provider: Iftikhar Hernandes MD
[2016-12-03 15:22] VITALS: BP 135/84
[2016-12-03] MEDS ORDERED: *HR* Succinylcholine 200 MG/10 ML VIAL IVP ONE (16:11)
[2016-12-03] MEDS ORDERED: Ondansetron 4 MG/2 ML VIAL IVP ONE (16:11)
[2016-12-03] MEDS ORDERED: *HR* Propofol 200 MG/20 ML VIAL IVP ONE (16:11)
[2016-12-03] MEDS ORDERED: Lidocaine -MPF 2% 5 ML VIAL INFILT ONE (16:11)
[2016-12-03] MEDS ORDERED: *HR* Labetalol 20 MG/4 ML SYRINGE IVP ONE (16:11)
== END 2016-12-03 16:12 | disposition home or self-care (01) ==
LOC: EMEROO 09:36 → 3ANU 09:36
PROVIDERS: ADMIT Surgery; ATTEND Surgery